=== PATIENT | male | born 1995 | race Caucasian/White ===

== ENCOUNTER 2016-12-26 01:22 | Emergency (ER) | payer OTHER ==
[2016-12-26 01:31] VITALS: BP 119/44
[2016-12-26] MEDS ORDERED: predniSONE TAB* 20 MG PO ONE (02:21)
[2016-12-26 02:59] LABS: Urine Bilirubin Negative (Negative); Urine Glucose Negative (Negative); Urine Nitrite Negative (Negative)
[2016-12-26 03:06] LABS: Hematocrit 44 % (42-52); Hemoglobin 15.2 g/dl (14.0-18.0); Mean Corpuscular HGB Conc 35 g/dl (31-36); Mean Corpuscular Hemoglobin 30 pg (27-31); Mean Corpuscular Volume 87 fL (80-94); Mean Platelet Volume 8 um3 (7.4-10.4); Red Blood Count 5.08 10^6/ul (4.0-5.4); Red Cell Distribution Width 13 % (10.5-15); White Blood Count 7.1 10^3/ul (3.5-10.8)
[2016-12-26 03:12] LABS: Albumin 4.4 g/dL (3.2-5.2); BUN/Creatinine Ratio 18.1 (8-20); Calcium 9.5 mg/dL (8.6-10.3); EGFR African American 127.9 (>60); EGFR Non-African American 99.5 (>60); Globulin 2.2 g/dL (2-4); Total Bilirubin 0.5 mg/dL (0.2-1.0); Total Protein 6.6 g/dL (6.4-8.9)
[2016-12-26 03:25] LABS: Potassium 3.5 mmol/L (3.5-5.0)
--- NOTE | 2016-12-26 04:47 | ED ---
Britton Garcia [place], scribed for Trev Levine on 12/26/16 at 0424 . Abdominal Pain/Male - HPI Summary HPI Summary: Patient is a 21 y/o male who presents to the ED with abd pain after an allergic reaction at 2200 today. Patient reports he is allergic to nuts and his last allergic reaction episode was 20 years ago. He reports nausea, lightheadedness, and edema of his tongue and throat. He denies any rashes or CP. Pt reports taking 2 tablets of Benadryl at 0100. He has not had an appendectomy. - History of Current Complaint Chief Complaint: EDGeneral Stated Complaint: POSS ALLERGIC REACTION Time Seen by Provider: 12/26/16 01:57 Hx Obtained From: Patient Onset/Duration: Gradual Onset, Lasting Hours Severity Initially: Moderate Severity Currently: Moderate Pain Intensity: 7 Pain Scale Used: 0-10 Numeric Aggravating Factor(s): Nothing Alleviating Factor(s): Nothing Associated Signs And Symptoms: Positive: Nausea, Other - Lightheadedness. Edema of his tongue and throat. Negative: Chest Pain - Allergies/Home Medications Allergies/Adverse Reactions: Allergies Allergy/AdvReac Type Severity Reaction Status Date / Time Peanut-containing Drug Allergy Anaphylatic Verified 12/26/16 01:38 Products Shock Tree Nuts Allergy Anaphylatic Verified 12/26/16 01:38 Shock PMH/Surg Hx/FS Hx/Imm Hx Previously Healthy: Yes Respiratory History: Reports: Hx Asthma Infectious Disease History: No Infectious Disease History: Denies: Traveled Outside the [place] in Last 30 Days - Family History Known Family History: Positive: Diabetes - Father. - Social History Alcohol Use: Occasionally Hx Substance Use: No Substance Use Type: Reports: None Hx Tobacco Use: No Review of Systems Positive: Other - Edema of his tongue and throat. Negative: Chest Pain Positive: Nausea Negative: Rash Neurological: Other - Lightheadedness. All Other Systems Reviewed And Are Negative: Yes Physical Exam Triage Information Reviewed: Yes Vital Signs On Initial Exam: Initial Vitals Temp Pulse Resp BP Pulse Ox 98.4 F 68 16 119/44 98 12/26/16 01:25 12/26/16 01:25 12/26/16 01:25 12/26/16 01:25 12/26/16 01:25 Vital Signs Reviewed: Yes Appearance: Positive: Well-Appearing, No Pain Distress Skin: Positive: Warm, Skin Color Reflects Adequate Perfusion, Dry Head/Face: Positive: Normal Head/Face Inspection Eyes: Positive: EOMI, CARIDAD Neck: Positive: Supple, Nontender Respiratory/Lung Sounds: Positive: Clear to Auscultation, Breath Sounds Present Cardiovascular: Positive: RRR, Pulses are Symmetrical in both Upper and Lower Extremities Abdomen Description: Positive: Other: - Tenderness in right and left lower quadrants Bowel Sounds: Positive: Present Musculoskeletal: Positive: Normal, Strength/ROM Intact Neurological: Positive: Normal, Sensory/Motor Intact, Alert, Oriented to Person Place, Time Diagnostics - Vital Signs Vital Signs Temp Pulse Resp BP Pulse Ox 12/26/16 01:25 98.4 F 68 16 119/44 98 - Laboratory Lab Results: Lab Results 12/26/16 12/26/16 12/26/16 Range/Units 02:40 02:40 02:40 WBC 7.1 (3.5-10.8) 10^3/ul RBC 5.08 (4.0-5.4) 10^6/ul Hgb 15.2 (14.0-18.0) g/dl Hct 44 (42-52) % MCV 87 (80-94) fL MCH 30 (27-31) pg MCHC 35 (31-36) g/dl RDW 13 (10.5-15) % Plt Count 239 (150-450) 10^3/ul MPV 8 (7.4-10.4) um3 Neut % (Auto) 65.4 (38-83) % Lymph % (Auto) 21.3 L (25-47) % [place] % (Auto) 10.0 H (1-9) % Eos % (Auto) 2.6 (0-6) % Baso % (Auto) 0.7 (0-2) % Absolute Neuts (auto) 4.7 (1.5-7.7) 10^3/ul Absolute Lymphs (auto) 1.5 (1.0-4.8) 10^3/ul Absolute Monos (auto) 0.7 (0-0.8) 10^3/ul Absolute Eos (auto) 0.2 (0-0.6) 10^3/ul Absolute Basos (auto) 0 (0-0.2) 10^3/ul Absolute Nucleated RBC 0 10^3/ul Nucleated RBC % 0.1 Sodium 137 (133-145) mmol/L Potassium 3.5 (3.5-5.0) mmol/L Chloride 104 (101-111) mmol/L Carbon Dioxide 25 (22-32) mmol/L Anion Gap 8 (2-11) mmol/L BUN 17 (6-24) mg/dL Creatinine 0.94 (0.67-1.17) mg/dL Est GFR ( Amer) 127.9 (>60) Est GFR (Non-Af Amer) 99.5 (>60) BUN/Creatinine Ratio 18.1 (8-20) Glucose 108 H (70-100) mg/dL Calcium 9.5 (8.6-10.3) mg/dL Total Bilirubin 0.50 (0.2-1.0) mg/dL AST 27 (13-39) U/L ALT 20 (7-52) U/L Alkaline Phosphatase 56 (34-104) U/L Total Protein 6.6 (6.4-8.9) g/dL Albumin 4.4 (3.2-5.2) g/dL Globulin 2.2 (2-4) g/dL Albumin/Globulin Ratio 2.0 (1-3) Lipase 27 (11.0-82.0) U/L Urine Color Straw Urine Appearance Clear Urine pH 6.0 (5-9) Ur Specific [place] 1.006 L (1.010-1.030) Urine Protein Negative (Negative) Urine Ketones Negative (Negative) Urine Blood Negative (Negative) Urine Nitrate Negative (Negative) Urine Bilirubin Negative (Negative) Urine Urobilinogen Negative (Negative) Ur Leukocyte Esterase Negative (Negative) Urine Glucose Negative (Negative) Result Diagrams: 12/26/16 02:40 12/26/16 02:40 Lab Statement: Any lab studies that have been ordered have been reviewed, and results considered in the medical decision making process. Re-Evaluation - Re-Evaluation First Eval Re-Evaluation Time: 04:21 Comment: Informed pt of plan. Abdominal Pain Fem Course/Dx - Course Course Of Treatment: ADVISED TO COME BACK IF ABDOMINAL PAINS GETS WORSE IN THE NEXT 48 HRS. Assessment/Plan: Patient refused ABD CT, but is agreeable with remainder of plan. - Diagnoses Provider Diagnoses: Allergic reaction, Abdominal pain Discharge - Discharge Plan Condition: Stable Disposition: HOME Prescriptions: predniSONE TAB* [Deltasone TAB*] 50 mg PO ONCE #5 tab predniSONE TAB* [Deltasone TAB*] 50 mg PO ONCE #5 tab Patient Education Materials: Prednisone (By mouth), Abdominal Pain (ED), General Allergic Reaction (ED) Referrals: [facility] TICO Boyle [Primary Care Provider] - Additional Instructions: Follow up with PCP in 2 days. Advised to return to ED if abd pain becomes worse within the next 48hours. The documentation as recorded by the Britton crow Salem accurately reflects the service I personally performed and the decisions made by Abner espinal Emmanuel.
== END 2016-12-26 04:38 | disposition home or self-care (01) ==
LOC: ED 01:22
DX: T78.1XXA Other adverse food reactions, not elsewhere classified, initial encounter (principal); R42 Dizziness and giddiness; R60.0 Localized edema; X58.XXXA Exposure to other specified factors, initial encounter; R10.84 Generalized abdominal pain
CPT/HCPCS: 36415; 80053; 81003; 83690; 85025; 99282; J7512